=== PATIENT | male | born 1965 | race Caucasian/White ===

== ENCOUNTER 2017-12-03 07:23 | Day surgery (SDC) | payer OTHER ==
[~2017-12-03] VITALS: Ht 188 cm; Wt 94.1 kg
[~2017-12-03 07:23] MED LIST: AZAT50TA PO; CALC-322 PO; CHOL100040 PO; FAMO-135 PO; INFL100I INJ; IRON150C5 PO; MULT-1192 PO; SODIUM CHLORIDE 0.9% 1000ML 1,000 ML IV ONE; TELM40 PO; WARF6TAB49 PO
[2017-12-03 07:34] VITALS: BP 113/77
[2017-12-03 07:48] VITALS: BP 113/77
[2017-12-03 08:05] LABS: INR 1.02 (0.85-1.15); PROTHROMBIN TIME 10.7 SEC (9.6-11.6)
[2017-12-03] MEDS ORDERED: CITRACAL+D PO (08:40)
[2017-12-03 10:12] VITALS: BP 78/44
== END 2017-12-03 10:45 | disposition home or self-care (01) ==
LOC: DAH 07:23 → ENDO 07:23
PROVIDERS: ATTEND Internal Medicine Gastroenterology
DX: K51.50 Left sided colitis without complications (principal); K63.5 Polyp of colon; K21.9 Gastro-esophageal reflux disease without esophagitis; Z79.01 Long term (current) use of anticoagulants; Z68.27 Body mass index [BMI] 27.0-27.9, adult; I26.99 Other pulmonary embolism without acute cor pulmonale; I10 Essential (primary) hypertension; N40.0 Benign prostatic hyperplasia without lower urinary tract symptoms; Z98.890 Other specified postprocedural states
CPT/HCPCS: 36415; 45380; 85610; 88305; A4606; J7030

== ENCOUNTER 2017-12-30 16:06 | Observation (INO) | payer OTHER ==
[~2017-12-30] VITALS: Ht 188 cm; Wt 91.6 kg
[~2017-12-30 16:06] MED LIST changes: -CALC-322 PO; +CITRACAL+D PO; -SODIUM CHLORIDE 0.9% 1000ML 1,000 ML IV ONE
[2017-12-30 16:32] LABS: BASOPHILS % (AUTO) 0.6 % (0.0-5.0); EOSINOPHILS % (AUTO) 1.7 % (0.0-8.0); LYMPHOCYTES % (AUTO) 25.9 % (21.0-51.0); MEAN CORPUSCULAR HEMOGLOBIN 29.2 pg (27.0-33.0); MEAN CORPUSCULAR HGB CONC 34.2 g/dL (32.0-36.0); MEAN CORPUSCULAR VOLUME 85.5 fL (79-99); MONOCYTES % (AUTO) 9.8 % (3.0-13.0); PLATELET COUNT (AUTO) 301 K/uL (130-400); RED BLOOD CELL COUNT(AUTO) 3.16 MIL/uL (4.50-6.20); RED CELL DISTRIBUTION WIDTH 19.1 % (11.0-15.5); WHITE BLOOD COUNT (AUTO) 6.1 K/uL (4.8-10.8)
[2017-12-30 16:47] LABS: INR 2.53 (0.85-1.15); PROTHROMBIN TIME 26.1 SEC (9.6-11.6)
[2017-12-30 16:48] LABS: POTASSIUM 4.3 mmol/L (3.5-5.1)
[2017-12-30 16:53] LABS: ALBUMIN 3.1 g/dL (3.5-5.0); BILIRUBIN,TOTAL 0.3 mg/dL (0.2-1.0); TOTAL PROTEIN, SERUM 6.1 g/dL (6.0-8.3)
[2017-12-30] MEDS ORDERED: ASPIRIN 325 MG TABLET ONE (17:01)
[2017-12-30 17:03] LABS: B-TYPE NATRIURETIC PEPTIDE 25 pg/mL (0-100)
[2017-12-30] MEDS ORDERED: IOPAMIDOL-370 100 ML VIAL IV ONE (17:09)
[2017-12-30 22:00] LABS: BASOPHILS % (AUTO) 0.4 % (0.0-5.0); EOSINOPHILS % (AUTO) 1.5 % (0.0-8.0); HEMATOCRIT 23.9 % (42-54); LYMPHOCYTES % (AUTO) 23.9 % (21.0-51.0); MEAN CORPUSCULAR HEMOGLOBIN 28.8 pg (27.0-33.0); MEAN CORPUSCULAR VOLUME 84.9 fL (79-99); MONOCYTES % (AUTO) 10.1 % (3.0-13.0); NEUTROPHILS % (AUTO) 64.1 % (40.0-77.0); NUCLEATED RED BLOOD CELLS 0.1 % (0.0-0.19); PLATELET COUNT (AUTO) 244 K/uL (130-400); RED BLOOD CELL COUNT(AUTO) 2.82 MIL/uL (4.50-6.20); RED CELL DISTRIBUTION WIDTH 19.5 % (11.0-15.5); WHITE BLOOD COUNT (AUTO) 5.1 K/uL (4.8-10.8)
[2017-12-30 22:35] VITALS: BP 127/72
[2017-12-30] MEDS ORDERED: REMICADE INFUSION (23:04)
[2017-12-30] MEDS ORDERED: IRON150C5 PO (23:04)
[2017-12-30] MEDS: SODIUM CHLORIDE 0.9% 1000ML 1,000 ML IV SCH (23:36)
[2017-12-31 03:50] VITALS: BP 123/73
[2017-12-31 06:20] LABS: BASOPHILS % (AUTO) 0.6 % (0.0-5.0); EOSINOPHILS % (AUTO) 2.9 % (0.0-8.0); HEMATOCRIT 27.9 % (42-54); LYMPHOCYTES % (AUTO) 26.1 % (21.0-51.0); MEAN CORPUSCULAR HEMOGLOBIN 28.6 pg (27.0-33.0); MEAN CORPUSCULAR HGB CONC 34.1 g/dL (32.0-36.0); MEAN CORPUSCULAR VOLUME 83.9 fL (79-99); MONOCYTES % (AUTO) 9.7 % (3.0-13.0); NEUTROPHILS % (AUTO) 60.7 % (40.0-77.0); NUCLEATED RED BLOOD CELLS 0.1 % (0.0-0.19); PLATELET COUNT (AUTO) 233 K/uL (130-400); RED BLOOD CELL COUNT(AUTO) 3.32 MIL/uL (4.50-6.20); RED CELL DISTRIBUTION WIDTH 18.5 % (11.0-15.5); WHITE BLOOD COUNT (AUTO) 4.4 K/uL (4.8-10.8)
[2017-12-31 08:00] VITALS: BP 114/66
[2017-12-31] MEDS ORDERED: PANTOPRAZOLE 40 MG/VIAL IVP SCH (09:00)
[2017-12-31 12:00] VITALS: BP 128/75
[2017-12-31 14:23] LABS: HEMATOCRIT 28.8 % (42-54); MEAN CORPUSCULAR HEMOGLOBIN 28.3 pg (27.0-33.0); MEAN CORPUSCULAR HGB CONC 33.5 g/dL (32.0-36.0); MEAN CORPUSCULAR VOLUME 84.3 fL (79-99); NUCLEATED RED BLOOD CELLS 0.3 % (0.0-0.19); PLATELET COUNT (AUTO) 251 K/uL (130-400); RED BLOOD CELL COUNT(AUTO) 3.41 MIL/uL (4.50-6.20); RED CELL DISTRIBUTION WIDTH 18.8 % (11.0-15.5); WHITE BLOOD COUNT (AUTO) 4.5 K/uL (4.8-10.8)
[2017-12-31 16:00] VITALS: BP 121/77
[2017-12-31 19:25] VITALS: BP 112/67
[2017-12-31] MEDS: SODIUM CHLORIDE 0.9% 1000ML 1,000 ML IV SCH (21:01)
[2017-12-31 23:20] VITALS: BP 125/78
[2018-01-01] VITALS (23 sets, daily range): BP systolic 11–141; BP diastolic 51–88
[2018-01-01 04:17] LABS: HEMATOCRIT 26.6 % (42-54); MEAN CORPUSCULAR HEMOGLOBIN 29.8 pg (27.0-33.0); MEAN CORPUSCULAR HGB CONC 35.5 g/dL (32.0-36.0); NUCLEATED RED BLOOD CELLS 0.1 % (0.0-0.19); PLATELET COUNT (AUTO) 250 K/uL (130-400); RED BLOOD CELL COUNT(AUTO) 3.17 MIL/uL (4.50-6.20)
[2018-01-01 04:27] LABS: INR 1.67 (0.85-1.15); PARTIAL THROMBOPLASTIN TIME 30.5 SEC (26.3-35.5); PROTHROMBIN TIME 17.4 SEC (9.6-11.6)
[2018-01-01] MEDS: SODIUM CHLORIDE 0.9% 1000ML 1,000 ML IV SCH (05:29)
[2018-01-01] MEDS ORDERED: PROPOFOL 10 MG/ML 20ML VIAL IV ONE (11:50)
[2018-01-01] MEDS ORDERED: SUCRALFATE 1 GM/10 ML PO SCH (17:00)
[2018-01-01] MEDS ORDERED: PANTOPRAZOLE SODIUM 40 MG TABLET.DR PO SCH (21:00)
== END 2018-01-01 20:40 | disposition home or self-care (01) ==
LOC: EDH 16:06 → EDHIP 20:16 → 3DH 21:42
PROVIDERS: ADMIT Internal Medicine Hematology & Oncology; ATTEND Internal Medicine Hematology & Oncology
DX: K51.911 Ulcerative colitis, unspecified with rectal bleeding (principal); K21.0 Gastro-esophageal reflux disease with esophagitis; K92.1 Melena; K29.50 Unspecified chronic gastritis without bleeding; D68.59 Other primary thrombophilia; Z86.711 Personal history of pulmonary embolism; K92.2 Gastrointestinal hemorrhage, unspecified; C43.9 Malignant melanoma of skin, unspecified; Z79.01 Long term (current) use of anticoagulants; Z85.820 Personal history of malignant melanoma of skin; Z86.718 Personal history of other venous thrombosis and embolism
CPT/HCPCS: 36415 ×3; 36430; 43239; 71045; 71275; 80053; 82550; 83880; 84484; 85025 ×3; 85027 ×2; 85610 ×2; 85730 ×2; 86850; 86900; 86901; 86922 ×2; 88305; 88312; 93005; 96374; 99285; C9113 ×2; G0378 ×48; J2704; J7030 ×2; P9016 ×2; Q9967

== ENCOUNTER → 2019-08-24 | Outpatient (CLI) | payer OTHER ==
[~2019-08-24] MED LIST changes: -FAMO-135 PO; -IRON150C5 PO; +PANT40TA25 PO; +SUCR1TAB2 PO
== END | disposition home or self-care (01) ==
LOC: RAH 13:02
PROVIDERS: ATTEND Internal Medicine Cardiovascular Disease
DX: Z13.6 Encounter for screening for cardiovascular disorders (principal)
CPT/HCPCS: 75571

== ENCOUNTER 2022-06-19 15:17 | Emergency (ER) | payer BC, OTHER ==
[~2022-06-19] VITALS: Ht 188 cm; Wt 93.0 kg
[~2022-06-19 15:17] MED LIST changes: -PANT40TA25 PO; +PANT40TA54 PO
[2022-06-19 15:25] VITALS: BP 138/80
[2022-06-19 16:02] LABS: BASOPHILS % (AUTO) 0.8 % (0.0-5.0); EOSINOPHILS % (AUTO) 2.6 % (0.0-8.0); HEMATOCRIT 41.9 % (42-54); LYMPHOCYTES % (AUTO) 18.1 % (21.0-51.0); MEAN CORPUSCULAR HEMOGLOBIN 29.8 pg (27.0-33.0); MEAN CORPUSCULAR HGB CONC 32.9 g/dL (32.0-36.0); MEAN CORPUSCULAR VOLUME 90.5 fL (79-99); MONOCYTES % (AUTO) 13.6 % (3.0-13.0); NEUTROPHILS % (AUTO) 64.7 % (40.0-77.0); PLATELET COUNT (AUTO) 203 K/uL (130-400); RED BLOOD CELL COUNT(AUTO) 4.63 MIL/uL (4.50-6.20); RED CELL DISTRIBUTION WIDTH 15.9 % (11.0-15.5); WHITE BLOOD COUNT (AUTO) 4.9 K/uL (4.8-10.8)
[2022-06-19 16:15] LABS: INR 1.41 (0.85-1.15); PROTHROMBIN TIME 15.1 SEC (9.6-11.6)
[2022-06-19 16:23] LABS: CREATININE 0.9 mg/dL (0.5-1.5); POTASSIUM 3.7 mmol/L (3.5-5.1)
[2022-06-19 16:28] LABS: ALBUMIN 3.6 g/dL (3.5-5.0); TOTAL PROTEIN, SERUM 7.1 g/dL (6.0-8.3)
== END 2022-06-19 19:10 | disposition home or self-care (01) ==
LOC: EDH 15:17
DX: I80.01 Phlebitis and thrombophlebitis of superficial vessels of right lower extremity (principal); I10 Essential (primary) hypertension; Z86.718 Personal history of other venous thrombosis and embolism; Z98.890 Other specified postprocedural states; Z79.899 Other long term (current) drug therapy; Z79.01 Long term (current) use of anticoagulants
CPT/HCPCS: 36415; 80053; 85025; 85610; 93971